=== PATIENT | female | born 1980 | race Caucasian/White ===

== ENCOUNTER → 2024-03-22 11:17 | Emergency (ER) | payer OTHER, SELFPAY ==
[2024-03-22 11:24] VITALS: BP 173/104
[2024-03-22 11:41] LABS: % Basophils 0.5 % (0-2); % Eosinophils 0.8 % (0-6); % Immature Granulocytes 0.3 % (0-0.5); % Lymphocytes 26.7 % (20.5-51.1); % Monocytes 7.2 % (1.7-9.3); % Neutrophils 64.5 % (42.2-75.2); Absolute Eosinophils 0.1 10^3/uL (0-0.7); Absolute Monocytes 0.5 10^3/uL (0.1-0.6); Absolute Neutrophils 4.7 10^3/uL (1.4-6.5); Hematocrit 36.7 % (37.0-47.0); Hemoglobin 12.8 g/dL (12.0-16.0); Mean Corp Hgb Conc. 34.9 g/dL (33.0-37.0); Mean Corpuscular Hgb 29.6 pg (27.0-31.0); Mean Platelet Volume 9.5 fL (7.4-10.4); Nucleated Red Blood Cells % 0 %; Platelet Count 262 10^3/uL (130-400); Red Blood Cell Count 4.32 10^6/uL (4.20-5.40); Red Cell Dist. Width 12.2 % (11.5-14.5); White Blood Cell Count 7.3 10^3/uL (4.8-10.8)
[2024-03-22 11:47] VITALS: BP 163/106
--- NOTE | 2024-03-22 11:51 | ED.GENMED ---
History of Present Illness
General
Chief Complaint: Chest Pain
Time Seen by Provider: 03/22/24 11:34
History of Present Illness
History of Present Illness:
43-year-old female with history of provoked PE no longer on anticoagulants presents to the emergency department for evaluation of generalized tremulousness, fatigue, chest heaviness and shortness of breath that began yesterday. Symptoms have waxed
and waned since yesterday evening. She also notes a migraine for the past 3 days however this has improved as of today. Currently denies chest pain but does have 'heaviness' when breathing. Did have a URI approximately 10 days ago but denies any
recent fevers or chills. No leg swelling or calf cramping. No ill contacts at home
Review of Systems
Review of Systems
Allergies reviewed?: Yes
All Other Systems: ROS reviewed and negative except as documented in HPI and ROS
Phy Exam
Physical Exam
Physical Exam:
GEN: Well appearing, NAD, WDWN
HEENT: Oral mucosa moist, no scleral icterus
Cardiac: Regular rate and rhythm, no murmurs
Lung: No respiratory distress, no tachypnea, lungs clear to auscultation bilaterally
MSK: No gross deformity or injuries
Skin: Good color, no pallor or jaundice, no rashes
Neuro: AO x3, moves all extremities freely
Psych: Calm, cooperative
Scores
Heart Score for Chest Pain Patients
STEMI patient?: No
History: Slightly or Non-Suspicious
ECG: Normal
Age: </= 45 years
Risk Factors: No Risk Factors
Troponin: </= Normal Limit
Heart Score for Chest Pain Patients: 0
Heart Score Risk: 2.5% MACE over next 6 weeks
Course
Orders/Labs/Results
Orders:
Orders
03/22/24 11:18
EKG [Electrocardiogram (*1)] Urgent
Reason for Study: Chest Pain
EKG- Treatment ONCE
03/22/24 11:28
Test Result ONCE
03/22/24 11:33
Complete Blood Count/With Diff Urgent
Comprehensive Metabolic Panel Urgent
D-Dimer Urgent
Comment: ADD ON
HCG, Serum Qualitative Screen Urgent
Comment: Notify provider if positive test present
Prothrombin Time Urgent
Troponin I Urgent
03/22/24 11:51
Add On- LAB Urgent
Tests Added?: D Dimer
CR Chest - 2 Views Urgent
Comment:
Reason For Exam: chest discomfort
03/22/24 11:55
COVID-19 Antigen Urgent
Source: Nasal Swab
Abnormal Lab Results
03/22/24
11:33
Hct 36.7 L %
(37.0-47.0)
03/22/24 11:33
03/22/24 11:33
Vital Signs
Initial and Last Documented VS:
Initial Vital Signs
Temp Pulse Resp BP Pulse Ox
98.3 F 79 18 173/104 99
03/22/24 11:24 03/22/24 11:24 03/22/24 11:24 03/22/24 11:24 03/22/24 11:24
Last Documented Vital Signs
Temp Pulse Resp BP Pulse Ox
98.3 F 82 16 163/106 99
03/22/24 11:24 03/22/24 11:48 03/22/24 11:48 03/22/24 11:47 03/22/24 11:48
MDM/Problems Addressed
MDM/Problems Addressed:
Proximal exam patient's workup was grossly abnormal. Reassuring EKG and negative troponin rules out ACS. Negative D-dimer rules out pulmonary embolism. Chest x-ray shows no acute infiltrates. Labs otherwise reassuring, recommend follow-up with
primary care if symptoms do not resolve spontaneously
Comment
Comment:
Initial EKG independently interpreted by me shows normal sinus rhythm at a rate of [address] changes concerning for ischemia, QTc of 434
*Critical Care Note
Total Time (30-74mins, 75-104mins- exclusive of procedures): Not Applicable
ED Attending Note
-
Portions of this chart may have been created with voice recognition software.� Occasional wrong word or��sound alike� substitutions may have occurred due to the inherent limitations of voice recognition software.
Discharge Plan
Departure
Patient Disposition: Home (Routine Discharge)
Date of Disposition: 03/22/24
Time of Disposition: 13:06
Patient with high blood pressure during this ER visit?: No
Discharge Problem:
Atypical chest pain
Instructions: Chest Pain That Is Not Caused by the Heart (DC)
Referrals:
Alexandria Ellis DO [Family Provider] -
Interventions
Interventions:
*Risk Screen - Suicide Last Done: 03/22/24 11:24
*General Assessment Last Done: 03/22/24 11:24
*Neglect/Abuse Screening Last Done: 03/22/24 11:24
ED- Fall Risk Assessment Last Done: 03/22/24 11:56
ED- Cardiac Assessment Last Done: 03/22/24 11:56
Discharge Date and Time
Print Language: [facility]
[2024-03-22 11:52] VITALS: BMI 31.4
[2024-03-22 11:55] LABS: HCG, Serum Qualitative Screen Negative; INR 1.09
[2024-03-22 12:00] LABS: ALT (SGPT) 14 U/L (0-35); AST (SGOT) 20 U/L (14-36); Albumin 4.2 g/dl (3.5-5.0); Alkaline Phosphatase 65 U/L (38-126); Blood Urea Nitrogen 12 mg/dl (7-17); Calcium 9.1 mg/dl (8.4-10.2); Carbon Dioxide 27 mmol/L (22-30); Chloride 102 mmol/L (98-107); Estimated Creatinine Clearance 108 ml/min; Glucose 93 mg/dl (70-99); Potassium 3.8 mmol/L (3.5-5.1); Sodium 141 mmol/L (135-145); Total Bilirubin 0.5 mg/dl (0.2-1.3); Total Protein 6.7 g/dl (6.3-8.2); eGFR > 60.00
[2024-03-22 12:11] LABS: Troponin I < 0.012 ng/ml
[2024-03-22 12:13] LABS: D-Dimer < 0.27 ug/mlFEU (0.00-0.50)
[2024-03-22 12:24] LABS: COVID-19 Antigen Negative (Negative)
== END | disposition home or self-care (01) ==
LOC: EMR 11:17
PROVIDERS: Physician Assistant; EMERGENCY PHYSICIAN Emergency Medicine; FAMILY PHYSICIAN Family Medicine
DX: R07.89 Other chest pain (principal); R53.83 Other fatigue; Z86.711 Personal history of pulmonary embolism
CPT/HCPCS: 99283; 71046; 80053; 84484; 84703; 85025; 85379; 85610; 87811; 93005